=== PATIENT | male | born 1995 | race Caucasian/White ===

== ENCOUNTER 2017-04-24 16:56 | Emergency (ER) | payer OTHER ==
[~2017-04-24] VITALS: Ht 165.1 cm; Wt 61.7 kg
[2017-04-24] MEDS ORDERED: ZYRTEC10 MG PO (18:03)
[2017-04-24] MEDS ORDERED: PREDNISONE20 M1 PO (18:03)
[2017-04-24] MEDS ORDERED: FLONASE ALLERG9.9 ML NAS (18:03)
[2017-04-24] MEDS ORDERED: ROBITUSSIN DM 105 ML PO (18:03)
== END 2017-04-24 17:53 | disposition home or self-care (01) ==
LOC: ED 16:56
DX: B34.9 Viral infection, unspecified (principal)